=== PATIENT | male | born 1980 | race Caucasian/White ===

== ENCOUNTER 2019-07-16 20:26 | Inpatient (IN) | payer MEDICAID, OTHER ==
[~2019-07-16] VITALS: Ht 170.2 cm; Wt 100.9 kg
[2019-07-16 21:00] LABS: BASOPHILS # (AUTO) 0.1 X10'3 (0-0.2); BASOPHILS % (AUTO) 0.7 % (0-1); EOSINOPHILS # (AUTO) 0.3 X10'3 (0-0.9); HEMATOCRIT 48.1 % (42.0-52.0); HEMOGLOBIN 16.7 g/dl (14.0-17.9); LYMPHOCYTES # (AUTO) 2.1 X10'3 (1.1-4.8); LYMPHOCYTES % (AUTO) 22.9 % (21-51); MEAN CORPUSCULAR HEMOGLOBIN 29.6 PG (27.0-31.0); MEAN CORPUSCULAR HGB CONC 34.8 g/dL (33.0-36.5); MEAN CORPUSCULAR VOLUME 85.2 FL (78-98); MONOCYTES # (AUTO) 0.5 X10'3 (0-0.9); MONOCYTES % (AUTO) 5.5 % (2-12); NEUTROPHILS # (AUTO) 6.2 X10'3 (1.8-7.7); NEUTROPHILS % (AUTO) 67.9 % (42-75); PLATELET COUNT 240 X10'3 (140-440); RED BLOOD COUNT 5.64 X10'6 (4.70-6.10); RED CELL DISTRIBUTION WIDTH 12.9 % (11.5-14.5); WHITE BLOOD COUNT 9.1 X10'3 (4.5-11.0)
[2019-07-16 21:08] LABS: ALANINE AMINOTRANSFERASE 61 U/L (12-78); ALBUMIN 3.5 G/DL (3.4-5.0); ALBUMIN/GLOBULIN RATIO 0.9 (1.1-1.5); ALKALINE PHOSPHATASE 145 IU/L (46-116); ANION GAP 11 (8-16); ASPARTATE AMINO TRANSFERASE 27 U/L (10-37); BILIRUBIN,TOTAL 0.5 MG/DL (0.1-1.0); BLOOD UREA NITROGEN 10 MG/DL (7-18); BUN/CREATININE RATIO 7.9 (5.4-32.0); CHLORIDE 97 MMOL/L (99-107); CREATININE 1.26 MG/DL (0.60-1.10); SODIUM 134 MMOL/L (135-145); TOTAL CARBON DIOXIDE 25.6 MMOL/L (24-32); TOTAL PROTEIN 7.5 G/DL (6.4-8.2); eGFR 64 ML/MIN
[2019-07-16 21:10] LABS: PARTIAL THROMBOPLASTIN TIME 27 SECONDS (22-32)
[2019-07-16 21:11] LABS: POTASSIUM 3.8 MMOL/L (3.5-5.1)
[2019-07-16 21:20] LABS: GLUCOSE 587 MG/DL (70-104)
[2019-07-16] MEDS ORDERED: nitroGLYCERIN 1gm ointment UD TP ONE (21:30)
[2019-07-16] MEDS ORDERED: aspirin 81mg tab.chew PO ONE (21:30)
[2019-07-16] MEDS ORDERED: labetalol 20mg/4ml (5mg/ml) syringe IV ONE ×2 (21:30→23:20)
[2019-07-16] MEDS ORDERED: ondansetron/PF 4mg/2ml inj IV ONE (21:35)
[2019-07-16] MEDS ORDERED: morphine 4 MG/ML inj SYRINge IV ONE (21:35)
[2019-07-16] MEDS ORDERED: heparin 10,000 units/1 ML INJ IV ONE ×2 (21:40)
[2019-07-16] MEDS ORDERED: HYDR25TA4 PO (21:43)
[2019-07-16] MEDS ORDERED: normal saline 1000ML IV soln IVB ONE (21:45)
[2019-07-16] MEDS ORDERED: insulin regular, human 10 units/0.1 ml syringe IV ONE (21:45)
[2019-07-16] MEDS: heparin 25,000 UNIT/250ml bag 250 ML IV SCH (21:59)
[2019-07-16] MEDS ORDERED: dextrose ORAL solution 15 GM/59 ML bottle PO PRN ×2 (23:25)
[2019-07-16] MEDS ORDERED: acetaminophen 325mg tablet PO PRN (23:25)
[2019-07-16] MEDS ORDERED: dextrose 50%-water 50ml dispensing syringe IV PRN ×2 (23:25)
[2019-07-16] MEDS ORDERED: magnesium hydroxide 30ml (MOM) UD suspension PO PRN (23:25)
[2019-07-16] MEDS ORDERED: morphine 2 MG/ML inj. syringe IV PRN ×2 (23:25)
[2019-07-16] MEDS ORDERED: mag hydrox/Alum hydrox/simeth 30ml oral suspension PO PRN (23:25)
[2019-07-16] MEDS ORDERED: ondansetron/PF 4mg/2ml inj IV PRN (23:25)
[2019-07-16] MEDS ORDERED: glucagon, human recombinant 1mg kit SUBCUT PRN (23:25)
[2019-07-16] MEDS ORDERED: MESSAGE TO PHARMACY PO ONE (23:25)
[2019-07-16 23:38] LABS: URINE AMPHETAMINE SCREEN NEGATIVE (Neg); URINE BARBITUATE SCREEN NEGATIVE (Neg); URINE BENZODIAZEPINES SCREEN NEGATIVE (Neg); URINE CANNABINOID SCREEN NEGATIVE (Neg); URINE COCAINE SCREEN NEGATIVE (Neg); URINE METHADONE SCREEN NEGATIVE (Neg); URINE OPIATE SCREEN NEGATIVE (Neg); URINE PHENCYCLIDINE SCREEN NEGATIVE (Neg)
[2019-07-16] MEDS: metoprolol tartrate 50mg tablet PO SCH (23:43)
[2019-07-16] MEDS: normal saline 1000ml 1,000 ML IV SCH (23:43)
[2019-07-17] VITALS (16 sets, daily range): BP systolic 107–188; BP diastolic 64–137
--- NOTE | 2019-07-17 00:59 | NUR ---
ER NURSE CALLED AND REPORTED THAT 3 HR TROP 4.[address] RAMIREZ. NO NEW ORDERS AT THIS TIME. PATIENT DENIES CP. WILL CONTINUE TO MONITOR
--- NOTE | 2019-07-17 03:13 | NUR ---
Called Dr. Reese and informed him regarding the patient's troponin being 8.58. He acknowledged the troponin level. No orders were given at this time.
[2019-07-17] MEDS ORDERED: tirofiban 5mg in NS 100mL 100 ML IV SCH (04:37)
[2019-07-17] MEDS: tirofiban 12.5mg in NS 250mL 250 ML IV SCH ×3 (05:03→17:11)
[2019-07-17 05:36] LABS: BASOPHILS # (AUTO) 0.1 X10'3 (0-0.2); BASOPHILS % (AUTO) 0.7 % (0-1); EOSINOPHILS # (AUTO) 0.3 X10'3 (0-0.9); EOSINOPHILS % (AUTO) 2.7 % (0-6); HEMATOCRIT 45.1 % (42.0-52.0); HEMOGLOBIN 15.7 g/dl (14.0-17.9); LYMPHOCYTES # (AUTO) 2.6 X10'3 (1.1-4.8); LYMPHOCYTES % (AUTO) 25.5 % (21-51); MEAN CORPUSCULAR HEMOGLOBIN 29.6 PG (27.0-31.0); MEAN CORPUSCULAR HGB CONC 34.7 g/dL (33.0-36.5); MEAN CORPUSCULAR VOLUME 85.1 FL (78-98); MONOCYTES # (AUTO) 0.5 X10'3 (0-0.9); MONOCYTES % (AUTO) 4.5 % (2-12); NEUTROPHILS # (AUTO) 6.8 X10'3 (1.8-7.7); NEUTROPHILS % (AUTO) 66.6 % (42-75); PLATELET COUNT 234 X10'3 (140-440); RED CELL DISTRIBUTION WIDTH 13.2 % (11.5-14.5); WHITE BLOOD COUNT 10.1 X10'3 (4.5-11.0)
[2019-07-17 05:48] LABS: ALANINE AMINOTRANSFERASE 57 U/L (12-78); ALBUMIN 3.3 G/DL (3.4-5.0); ALBUMIN/GLOBULIN RATIO 0.9 (1.1-1.5); ALKALINE PHOSPHATASE 119 IU/L (46-116); ANION GAP 11 (8-16); ASPARTATE AMINO TRANSFERASE 74 U/L (10-37); BILIRUBIN,TOTAL 0.4 MG/DL (0.1-1.0); BLOOD UREA NITROGEN 11 MG/DL (7-18); CALCIUM 8.8 MG/DL (8.5-10.1); CHLORIDE 102 MMOL/L (99-107); CHOL/HDL RATIO 6.5 (0.00-4.99); CHOLESTEROL 182 MG/DL (0-200); CREATININE 0.92 MG/DL (0.60-1.10); GLUCOSE 363 MG/DL (70-104); HDL CHOLESTEROL 28 MG/DL (35-60); LDL CHOLESTEROL 93 MG/DL (50-100); SODIUM 140 MMOL/L (135-145); TOTAL CARBON DIOXIDE 26.9 MMOL/L (24-32); TOTAL PROTEIN 6.9 G/DL (6.4-8.2); TRIGLYCERIDES 566 MG/DL (20-135); eGFR > 90 ML/MIN
[2019-07-17 05:50] LABS: POTASSIUM 3.3 MMOL/L (3.5-5.1)
[2019-07-17] MEDS: heparin 25,000 UNIT/250ml bag 250 ML IV SCH ×3 (05:59→21:18)
[2019-07-17] MEDS: heparin 10,000 units/1 ML INJ IV PRN ×3 (06:00→21:14)
[2019-07-17 06:04] LABS: HEMOGLOBIN A1C 10.2 % (4.5-6.2)
--- NOTE | 2019-07-17 06:15 | NUR ---
Patient in room MED 308. I have received report from Aliza REDD and had the opportunity to ask questions and assume patient care.
--- NOTE | 2019-07-17 06:36 | NUR ---
Patient in room MED 308. I have received report from TRAMAINE Abrams and had the opportunity to ask questions and assume patient care.
[2019-07-17] MEDS ORDERED: potassium CL 10mEq/100ml bag 100 ML IV PRN (07:05)
[2019-07-17] MEDS ORDERED: potassium Cl 20 mEq SR tablet PO PRN (07:05)
[2019-07-17] MEDS: potassium Cl 20 mEq SR tablet PO PRN ×3 (07:21→17:57)
[2019-07-17] MEDS: metoprolol tartrate 50mg tablet PO SCH (07:21)
[2019-07-17] MEDS ORDERED: hydrALAZINE 20mg/ml inj. IV PRN ×3 (08:05→13:35)
--- NOTE | 2019-07-17 08:30 | NUR ---
Administered hydralazine 10 mg IVP at this time, will monitor the results of his blood pressure.
[2019-07-17] MEDS: insulin Lispro (HumaLOG) vial - multi-dose SQ SCH ×3 (09:05→15:25)
[2019-07-17] MEDS: normal saline 1000ml 1,000 ML IV SCH ×2 (09:21→15:30)
[2019-07-17 09:27] LABS: MAGNESIUM 1.6 MG/DL (1.5-2.4)
--- NOTE | 2019-07-17 09:40 | NUR ---
HE HOSPITALIST, "REYNALDO [id number] SHAYAN BETANCUR CRIT HIGH TROP 13.38 RECENTLY RESULTED. HIGHER THAN PRIOR RESULT." DR. SANTOS RECENTLY ROUNDED AND DISCUSSED WITH PATIENT THE PLAN FOR RECEIVING AN ANGIOGRAM TODAY.
[2019-07-17] MEDS ORDERED: amLODIPine 5mg tablet PO STA (09:52)
--- NOTE | 2019-07-17 10:00 | NUR ---
Student documentation & medication administration documentation: I have reviewed and agree with all interventions, assessments performed and documented by Arnoldo Goodman RN.
[2019-07-17] MEDS ORDERED: metoprolol tartrate 1mg/ml inj IV ONE ×2 (11:10→12:44)
[2019-07-17] MEDS ORDERED: LORazepam 1 MG tablet PO ONE (11:10)
[2019-07-17] MEDS ORDERED: nitroGLYCERIN-Tridil 50MG/D5W 250 ML IV SCH (11:10)
[2019-07-17] MEDS ORDERED: diphenhydrAMINE 25mg capsule PO ONE (11:10)
[2019-07-17] MEDS ORDERED: phenylephrine 10mg/ml inj. ONE (12:00)
[2019-07-17] MEDS ORDERED: LIDOcaine 2% (20 mg/ml) 5ml cardiac syringe ONE (12:00)
[2019-07-17] MEDS ORDERED: albumin (human) 25% 100 ML IV solution IV ONE (12:00)
[2019-07-17] MEDS ORDERED: potassium Cl 2 mEq/ml inj IV ONE (12:00)
[2019-07-17] MEDS ORDERED: methylPREDNISolone sod. succ. 500mg inj ONE (12:00)
[2019-07-17] MEDS ORDERED: heparin 10,000 units/1 ML INJ ONE (12:00)
[2019-07-17] MEDS ORDERED: MAGNESIUM SULFATE 4 MEQ/ML (5gm/10ml) injection ONE (12:00)
[2019-07-17] MEDS ORDERED: heparin 1,000 units/ml 10ml inj ONE (12:00)
[2019-07-17] MEDS ORDERED: aminocaproic acid 250 MG/1 ML inj. ONE (12:00)
[2019-07-17] MEDS ORDERED: sodium bicarbonate (8.4%) 1 mEq/ml syringe ONE (12:00)
[2019-07-17] MEDS ORDERED: papaverine 30 mg/ml 2ml inj. ONE (12:00)
[2019-07-17] MEDS ORDERED: iohexol 350MG/ML 100ml bottle IV ONE (12:06)
[2019-07-17] MEDS ORDERED: iohexol 350 MG/ML 50ML vial IV ONE (12:06)
[2019-07-17] MEDS ORDERED: LIDOcaine 1% (10mg/ml)w/preservative injection 20ml MDV ONE (12:06)
--- NOTE | 2019-07-17 12:13 | NUR ---
DM Consult: Pt admit w/ NSTEMI hx HTN and T2DM A1C 10.2. GLU 587 and TG 566 on admit; TG possibly r/t uncontrolled GLU vs other dietary habits now receiving lipitor. Per MD note likely non-compliance w/ hydrochlorothiazide home meds. Pt currently NPO for possible angiogram per MD note. Receiving electrolyte replacement per protocol. Will need DM ed once more stable prior to d/c. Will monitor for diet advancement. Rec: 1. advance diet to carb controlled/heart healthy per MD 2. monitor for ONS needs once PO 3. DM ed once more stable prior to d/c 4. wt per rx Addendum: 07/17/19 at [address] Amended: Links added.
--- NOTE | 2019-07-17 12:20 | NUR ---
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
[2019-07-17] MEDS ORDERED: fentaNYL/PF 50MCG/1 ML 2ML syringe ONE (12:30)
[2019-07-17] MEDS ORDERED: midazolam 2 mg/2 ml injection ONE (12:30)
[2019-07-17] MEDS ORDERED: nitroGLYCERIN-Tridil 50MG/D5W 250 ML IV ONE (12:53)
--- NOTE | 2019-07-17 13:00 | NUR ---
Received pt report from TRAMAINE Rutherford from ACCE unit.
--- NOTE | 2019-07-17 13:18 | NUR ---
Received report from TRAMAINE Taylor from Forensic Examiner.
--- NOTE | 2019-07-17 13:30 | NUR ---
Report given to Dominic REDD in ICU.
--- NOTE | 2019-07-17 13:30 | NUR ---
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 He is lightly sedated, hypertensive, normal sinus rhythm. Pt denies discomfort at this time. Femoral sheath site without hematoma.
[2019-07-17] MEDS ORDERED: aspirin 81mg tab.chew PO ONE (13:37)
[2019-07-17] MEDS ORDERED: morphine 4 MG/ML inj SYRINge IV PRN (13:45)
[2019-07-17] MEDS ORDERED: HYDROcodone/acetaminophen 10/325mg tab PO PRN (13:45)
[2019-07-17] MEDS ORDERED: OXAZEpam 15mg capsule PO PRN (13:45)
[2019-07-17] MEDS ORDERED: morphine 10mg/ml inj. IV PRN (13:45)
[2019-07-17] MEDS ORDERED: proCHLORperazine 10 MG/2 ml inj IV PRN (13:45)
[2019-07-17] MEDS ORDERED: MESSAGE TO NURSING PO ONE ×4 (13:55)
[2019-07-17] MEDS ORDERED: dextrose 50%-water 50ml dispensing syringe IV PRN ×3 (13:55→17:15)
[2019-07-17] MEDS ORDERED: gabapentin 400mg capsule PO ONE (13:55)
[2019-07-17] MEDS ORDERED: insulin glargine (Lantus) pen - multi-dose SQ PRN (13:55)
[2019-07-17 14:29] LABS: PARTIAL THROMBOPLASTIN TIME 35 SECONDS (22-32)
[2019-07-17] MEDS ORDERED: dextrose ORAL solution 15 GM/59 ML bottle PO PRN ×2 (17:15)
[2019-07-17] MEDS ORDERED: insulin Lispro (HumaLOG) vial - multi-dose SQ SCH (17:15)
[2019-07-17] MEDS ORDERED: MESSAGE TO PHARMACY PO ONE (17:15)
[2019-07-17] MEDS ORDERED: glucagon, human recombinant 1mg kit SUBCUT PRN (17:15)
[2019-07-17 17:26] LABS: ABG BASE EXCESS 2.2 mmol/L (-2.0-3.0); ABG HCO3 26.3 mmol/L (22.0-26.0); ABG OXYGEN SATURATION 97.6 % (95-98); ABG PCO2 (T) 39.3 mmHg (35.0-45.0); ABG PH (T) 7.444 (7.350-7.450); ABG PO2 (T) 94.8 mmHg (83-108); ALLEN'S TEST Positive; FCOHb 0.8 % (0.5-1.5); FLOW 2 L/min; FMetHb 0.2 % (0.3-1.12); FO2Hb 96.6 % (94-100); RESPIRATORY RATE (OBSERVED) 16 b/min; TOTAL HEMOGLOBIN 16.1 G/dl (14.0-17.9)
--- NOTE | 2019-07-17 18:20 | NUR ---
Patient in room ICU 2044. I have received report from TRAMAINE Alfaro and had the opportunity to ask questions and assume patient care. Patient supine in bed. Patient sleeping but awakens to verbal easily. Patient with right arterial sheath in place. Dressing intact, skin is soft without hematoma. Pedal pulses intact bilaterally. Patient currently on Heparin drip, Aggrastat drip, Tridil drip, and normal saline infusing per MD order in bilateral PIV's to upper extremities Oxygen via nasal cannula at [address] Patient denies any chest pain at this time. Patient C/O lower back pain from lying flat and not being able to move right lower extremity.
--- NOTE | 2019-07-17 18:25 | NUR ---
Problems reprioritized. Patient report given, questions answered & plan of care reviewed with TRAMAINE Khan.
--- NOTE | 2019-07-17 19:00 | NUR ---
Patients Right groin dressing to the sheath is saturated with blood. Patient on heparin drip. no hematoma present. Dressing changed.
[2019-07-17] MEDS ORDERED: metoprolol tartrate 12.5mg (1/2 tablet) PO SCH (20:00)
[2019-07-17] MEDS ORDERED: metoprolol succinate 25mg (24-HOUR) SR. Tablet PO SCH (20:00)
[2019-07-17] MEDS ORDERED: amLODIPine 5mg tablet PO SCH (20:00)
--- NOTE | 2019-07-17 20:30 | NUR ---
supervisor advice called to confirm that patient is not on the surgery schedule for tomorrow. Wednesday 07/18. supervisor advice confirmed that he is not on the schedule and is possibly for Thursday or Thursday.
[2019-07-17] MEDS ORDERED: insulin glargine (Lantus) pen - multi-dose SQ SCH (21:00)
[2019-07-17] MEDS: docusate sod 100mg capsule PO SCH (21:03)
[2019-07-17] MEDS: carVEDilol 12.5mg tablet PO SCH (21:03)
[2019-07-17] MEDS: cyclobenzaprine 10mg tablet PO PRN (21:03)
[2019-07-17] MEDS: amLODIPine 5mg tablet PO SCH (21:04)
[2019-07-17] MEDS: insulin glargine (Lantus) pen - multi-dose SQ SCH (21:37)
--- NOTE | 2019-07-17 22:00 | NUR ---
Right arterial sheath dressing changed secondary to saturation with blood. Site is without hematoma, soft. Pedal pulses intact.
[2019-07-17 22:04] LABS: CLARITY,URINE CLEAR (Clear); COLOR,URINE YELLOW (Yellow); GLUCOSE, URINE >=1000 mg/dl (Neg); KETONES,URINE 40 mg/dl (Neg); LEUKOCYTE ESTERASE ,URINE NEGATIVE (Neg); NITRITES, URINE NEGATIVE (Neg); OCCULT BLOOD,URINE NEGATIVE (Neg); PH,URINE 7.5 (4.8-8.0); PROTEIN,URINE 100 mg/dl (Neg); UROBILINOGEN,URINE 0.2 E.U/dL (0.2-1.0)
[2019-07-17 22:14] LABS: UA COLLECTION TYPE CLN CATCH MIDSTREAM
[2019-07-17 22:26] LABS: BACTERIA,URINE NONE SEEN /HPF (Neg); MUCUS STRANDS MANY /LPF (Neg); RBC,URINE 0-2 /HPF (0-2); SQUAMOUS EPITHELIAL CELL,UR FEW /LPF (FEW); WBC,URINE 0-4 /HPF (0-4)
--- NOTE | 2019-07-17 22:55 | NUR ---
Phone call to Britton Wilde NP re: Patient with Obstructive sleep apnea. Patient does not wear CPAP at home although he says he has had a sleep study and "should wear one but I don't like it." Patient's oxygen saturation on 3 lpm nasal cannula while sleeping dropping to the high 70's - low 80's with frequent periods of apnea. Order for CPAP PRN for SOB/ low oxygen saturation.
[2019-07-18] VITALS (25 sets, daily range): BP systolic 92–147; BP diastolic 41–98
[2019-07-18] MEDS: HYDROcodone/acetaminophen 10/325mg tab PO PRN ×2 (00:54→17:17)
--- NOTE | 2019-07-18 01:40 | NUR ---
0051: Patient awoke from sleep, pulled off CPAP mask. Patient states " I am not wearing this anymore." Educated patient on the purpose of wearing the mask and his oxygenation levels while asleep. Patient states " I don't care, I do not want to wear it. Is there something I can sign that I do not want to wear it?" Patient placed on 3 lpm nasal cannula. During sleep patient with periods of apnea. Each time staff went in and woke patient up and asked him to breathe. At 0136 Patient agreed to try the mask again. Will continue to monitor.
--- NOTE | 2019-07-18 03:36 | NUR ---
Arterial sheath not able to draw blood. Lab called to place patient on morning lab draw list. Asked them to come up and draw DANIELLE .
[2019-07-18 05:21] LABS: ALANINE AMINOTRANSFERASE 53 U/L (12-78); ALBUMIN/GLOBULIN RATIO 0.9 (1.1-1.5); ALKALINE PHOSPHATASE 99 IU/L (46-116); ANION GAP 8 (8-16); ASPARTATE AMINO TRANSFERASE 43 U/L (10-37); BILIRUBIN,TOTAL 0.8 MG/DL (0.1-1.0); BLOOD UREA NITROGEN 14 MG/DL (7-18); BUN/CREATININE RATIO 11.9 (5.4-32.0); CALCIUM 8.3 MG/DL (8.5-10.1); CHLORIDE 105 MMOL/L (99-107); CREATININE 1.18 MG/DL (0.60-1.10); GLUCOSE 267 MG/DL (70-104); POTASSIUM 4.1 MMOL/L (3.5-5.1); SODIUM 139 MMOL/L (135-145); TOTAL CARBON DIOXIDE 26.4 MMOL/L (24-32); TOTAL PROTEIN 6.5 G/DL (6.4-8.2); eGFR 69 ML/MIN
[2019-07-18 05:24] LABS: BASOPHILS % (AUTO) 0.4 % (0-1); EOSINOPHILS # (AUTO) 0.2 X10'3 (0-0.9); EOSINOPHILS % (AUTO) 1.7 % (0-6); HEMATOCRIT 43.4 % (42.0-52.0); HEMOGLOBIN 14.4 g/dl (14.0-17.9); LYMPHOCYTES # (AUTO) 1.9 X10'3 (1.1-4.8); LYMPHOCYTES % (AUTO) 15.2 % (21-51); MEAN CORPUSCULAR HEMOGLOBIN 28.8 PG (27.0-31.0); MEAN CORPUSCULAR HGB CONC 33.3 g/dL (33.0-36.5); MEAN CORPUSCULAR VOLUME 86.6 FL (78-98); MEAN PLATELET VOLUME 10.6 FL (7.4-10.4); MONOCYTES # (AUTO) 0.8 X10'3 (0-0.9); MONOCYTES % (AUTO) 6.2 % (2-12); NEUTROPHILS # (AUTO) 9.7 X10'3 (1.8-7.7); NEUTROPHILS % (AUTO) 76.5 % (42-75); PLATELET COUNT 287 X10'3 (140-440); RED BLOOD COUNT 5.01 X10'6 (4.70-6.10); RED CELL DISTRIBUTION WIDTH 13.2 % (11.5-14.5); WHITE BLOOD COUNT 12.7 X10'3 (4.5-11.0)
[2019-07-18] MEDS: normal saline 1000ml 1,000 ML IV SCH (05:40)
--- NOTE | 2019-07-18 06:21 | NUR ---
Problems reprioritized. Patient report given, questions answered & plan of care reviewed with TRAMAINE Alfaro.
--- NOTE | 2019-07-18 06:30 | NUR ---
Patient in room ICU 2044. I have received report from TRAMAINE Khan and had the opportunity to ask questions and assume patient care.
[2019-07-18 06:38] LABS: MAGNESIUM 1.7 MG/DL (1.5-2.4)
[2019-07-18 07:27] LABS: LARGE PLATELETS FEW; PLATELET ESTIMATE NORMAL
[2019-07-18] MEDS: carVEDilol 12.5mg tablet PO SCH ×2 (07:42→21:17)
[2019-07-18] MEDS: docusate sod 100mg capsule PO SCH ×2 (07:42→21:17)
[2019-07-18] MEDS: cyclobenzaprine 10mg tablet PO PRN (07:42)
[2019-07-18] MEDS: tirofiban 12.5mg in NS 250mL 250 ML IV SCH (07:43)
[2019-07-18] MEDS: mupirocin 2% nasal ointment 1gm UD NS SCH ×2 (07:45→21:19)
[2019-07-18] MEDS ORDERED: atorvastatin 20mg tablet PO SCH (08:00)
[2019-07-18] MEDS ORDERED: lisinopril 10 MG tablet PO SCH (08:00)
[2019-07-18] MEDS ORDERED: lisinopril 20mg tablet PO SCH (08:00)
[2019-07-18] MEDS ORDERED: aspirin 81mg tablet.DR PO SCH (08:00)
[2019-07-18] MEDS: heparin 25,000 UNIT/250ml bag 250 ML IV SCH (08:56)
[2019-07-18] MEDS: amLODIPine 5mg tablet PO SCH ×2 (08:58→21:17)
[2019-07-18] MEDS: insulin Lispro (HumaLOG) vial - multi-dose SQ SCH ×2 (09:04→21:56)
[2019-07-18] MEDS ORDERED: ringers solution, lacted 1,000 ML IV ONE (09:31)
[2019-07-18] MEDS ORDERED: MESSAGE TO NURSING PO ONE (10:00)
--- NOTE | 2019-07-18 14:34 | NUR ---
Pt requests that femoral sheath be discontinued. Femoral sheath is flushing smoothly, unable to draw blood form sheath despite position. Pt remains on heparin gtt with therapeutic PTT 46. There has been a constant oozing of blood from sheath insertion site requiring multiple dressing changes a shift. This was discussed with Dr. Greer. Order received to hold heparin gtt for two hours, discontinue femoral sheath, place Femstop device for 6 hrs, and resume heparin gtt once sheath has been pulled.
--- NOTE | 2019-07-18 17:38 | NUR ---
Femoral sheath discontinued. Pt experienced some discomfort upon sheath withdrawal. Manual pressure held for 20 minutes. Femstop device placed. Distal circulation intact. Heparin drip restarted. PTT ordered and retimed.
--- NOTE | 2019-07-18 18:18 | NUR ---
Verbal order from Dr. Greer to stop the Heparin drip. Patient states he a Jehovahs Witness and is not wanting to accept blood. Dr. Greer came to bedside discussed what blood products the patient was okay with accepting. J.WClare Blood product consent signed.
--- NOTE | 2019-07-18 18:30 | NUR ---
Problems reprioritized. Patient report given, questions answered & plan of care reviewed with [TRAMAINE Khan].
[2019-07-18] MEDS: insulin glargine (Lantus) pen - multi-dose SQ SCH (21:00)
--- NOTE | 2019-07-18 21:13 | NUR ---
Called Dr. Greer to confirm that he wanted the Aggrastat turned off per the standing order in the eMAR. Dr. Greer confirmed to turn off the Aggrastat now. Late entry: 1819 Dr. Greer gave order to D/C Heparin. Told to continue Aggrastat.
--- NOTE | 2019-07-18 21:30 | NUR ---
Problems reprioritized. Patient report given, questions answered & plan of care reviewed with TRAMAINE Duarte.
--- NOTE | 2019-07-18 21:30 | NUR ---
Patient in room ICU 2044. I have received report from Erin tyson and had the opportunity to ask questions and assume patient care.
--- NOTE | 2019-07-18 23:00 | NUR ---
femstop removed. site is soft, dressing clean and dry. no hematoma noted. pedal pulses 3+ bilaterally with good cap refill. pt educated on s/s of bleeding and post cath care. pt verbalized understanding of education
[2019-07-19] VITALS (24 sets, daily range): BP systolic 109–166; BP diastolic 64–91
--- NOTE | 2019-07-19 00:08 | NUR ---
pt prepared for CABG scheduled for tomorrow. pt shaved, wiped down with medicated wiped, and linens changed. education provided on sternal precautions, incentive spirometer, and flutter valve. pt able to perform return demonstration on flutter valve and incentive spirometer/ pt verbalized understanding of education.
[2019-07-19] MEDS: tirofiban 12.5mg in NS 250mL 250 ML IV SCH (00:12)
[2019-07-19 02:35] LABS: BASOPHILS % (AUTO) 0.3 % (0-1); EOSINOPHILS # (AUTO) 0.4 X10'3 (0-0.9); EOSINOPHILS % (AUTO) 3.6 % (0-6); HEMATOCRIT 38.8 % (42.0-52.0); HEMOGLOBIN 13.3 g/dl (14.0-17.9); LYMPHOCYTES # (AUTO) 1.9 X10'3 (1.1-4.8); LYMPHOCYTES % (AUTO) 19.7 % (21-51); MEAN CORPUSCULAR HEMOGLOBIN 29.6 PG (27.0-31.0); MEAN CORPUSCULAR HGB CONC 34.2 g/dL (33.0-36.5); MEAN CORPUSCULAR VOLUME 86.3 FL (78-98); MEAN PLATELET VOLUME 9.3 FL (7.4-10.4); MONOCYTES # (AUTO) 0.7 X10'3 (0-0.9); MONOCYTES % (AUTO) 6.7 % (2-12); NEUTROPHILS # (AUTO) 6.8 X10'3 (1.8-7.7); NEUTROPHILS % (AUTO) 69.7 % (42-75); PLATELET COUNT 222 X10'3 (140-440); RED CELL DISTRIBUTION WIDTH 13.2 % (11.5-14.5); WHITE BLOOD COUNT 9.7 X10'3 (4.5-11.0)
[2019-07-19 02:46] LABS: ALANINE AMINOTRANSFERASE 39 U/L (12-78); ALBUMIN 2.6 G/DL (3.4-5.0); ALBUMIN/GLOBULIN RATIO 0.7 (1.1-1.5); ALKALINE PHOSPHATASE 95 IU/L (46-116); ANION GAP 3 (8-16); ASPARTATE AMINO TRANSFERASE 22 U/L (10-37); BILIRUBIN,TOTAL 0.7 MG/DL (0.1-1.0); BLOOD UREA NITROGEN 18 MG/DL (7-18); CALCIUM 8.2 MG/DL (8.5-10.1); CHLORIDE 108 MMOL/L (99-107); GLUCOSE 204 MG/DL (70-104); POTASSIUM 3.7 MMOL/L (3.5-5.1); SODIUM 141 MMOL/L (135-145); TOTAL CARBON DIOXIDE 29.9 MMOL/L (24-32); TOTAL PROTEIN 6.1 G/DL (6.4-8.2); eGFR > 90 ML/MIN
[2019-07-19] MEDS ORDERED: gabapentin 400mg capsule PO ONE (03:40)
--- NOTE | 2019-07-19 03:56 | NUR ---
completed second round of CHG wipes from chin to toes
[2019-07-19] MEDS ORDERED: ROPIVAcaine 0.5% (5mg/ml) 30ml vial ONE ×2 (04:39→09:10)
[2019-07-19] MEDS ORDERED: cefazolin/dext.iso 2gm/50ml 50 ML IV ONE (05:30)
[2019-07-19] MEDS ORDERED: insulin glargine (Lantus) pen - multi-dose SQ PRN (05:30)
[2019-07-19] MEDS ORDERED: NUT.TX.IMPAIRED DIGEST FXN (Ensure Clear) 237 ML PO ONE (05:30)
[2019-07-19] MEDS ORDERED: vancomycin/NS 1 GM ADD-VANTAGE 250 ML IV ONE (05:30)
[2019-07-19] MEDS ORDERED: famotidine 20mg tablet PO ONE (06:00)
[2019-07-19] MEDS ORDERED: LORazepam 2 mg/ml vial IV ONE (06:00)
[2019-07-19] MEDS ORDERED: SUFENTANIL CITRATE 50 MCG/ML 2ml ampule IV ONE (06:22)
[2019-07-19] MEDS ORDERED: MIDAZolam 1mg/ml 10ml vial ONE (06:22)
[2019-07-19] MEDS ORDERED: propofol inj 20 ML IV ONE (06:27)
[2019-07-19 07:15] LABS: ABG BASE EXCESS -0.6 mmol/L (-2.0-3.0); ABG HCO3 23.7 mmol/L (22.0-26.0); ABG OXYGEN SATURATION 96.8 % (95-98); ABG PCO2 38.2 mmHg (35.0-45.0); ABG PO2 89.7 mmHg (60.0-100.0); CL (ABG) 102 mmol/L (99-107); FCOHb 1.6 % (0.5-1.5); FMetHb 0.3 % (0.3-1.12); GLUCOSE (ABG) 233 mg/dl (70-104); IONIZED CA (ABG) 1.18 mmol/L (1.03-1.32); K (ABG) 3.7 mmol/L (3.3-5.1); NA (ABG) 137 mmol/L (135-145); TOTAL HEMOGLOBIN 16.2 G/dl (14.0-17.9)
[2019-07-19] MEDS ORDERED: ceFAZolin 1000mg inj ONE (07:24)
[2019-07-19 07:55] LABS: ABG BASE EXCESS VENOUS -1.7 mmol/L; ABG HCO3 VENOUS 23.7 mmol/L; ABG PCO2 VENOUS 43.2 mmHg; ABG PO2 VENOUS 36.5 mmHg; CL (ABG) 104 mmol/L (99-107); FCOHb VENOUS 1.7 %; FHHb VENOUS 29.2 %; FO2Hb VENOUS 69.1 %; GLUCOSE (ABG) 237 mg/dl (70-104); IONIZED CA (ABG) 1.07 mmol/L (1.03-1.32); K (ABG) 3.6 mmol/L (3.3-5.1); NA (ABG) 133 mmol/L (135-145); TOTAL HEMOGLOBIN 11.9 G/dl (14.0-17.9)
[2019-07-19 08:21] LABS: ABG BASE EXCESS -0.4 mmol/L (-2.0-3.0); ABG HCO3 24.7 mmol/L (22.0-26.0); ABG OXYGEN SATURATION 99.3 % (95-98); ABG PCO2 42.7 mmHg (35.0-45.0); ABG PO2 283.4 mmHg (60.0-100.0); CL (ABG) 102 mmol/L (99-107); FCOHb 1.1 % (0.5-1.5); FMetHb 0.3 % (0.3-1.12); FO2Hb 97.9 % (94-100); GLUCOSE (ABG) 213 mg/dl (70-104); IONIZED CA (ABG) 0.99 mmol/L (1.03-1.32); K (ABG) 4.3 mmol/L (3.3-5.1); NA (ABG) 138 mmol/L (135-145); TOTAL HEMOGLOBIN 8.5 G/dl (14.0-17.9)
[2019-07-19 08:40] LABS: ABG OXYGEN SATURATION 99.2 % (95-98); ABG PCO2 41.2 mmHg (35.0-45.0); ABG PH 7.383 (7.350-7.450); ABG PO2 256.7 mmHg (60.0-100.0); CL (ABG) 103 mmol/L (99-107); FCOHb 0.9 % (0.5-1.5); FMetHb 0.3 % (0.3-1.12); GLUCOSE (ABG) 211 mg/dl (70-104); IONIZED CA (ABG) 1.04 mmol/L (1.03-1.32); K (ABG) 4.3 mmol/L (3.3-5.1); NA (ABG) 135 mmol/L (135-145); TOTAL HEMOGLOBIN 8.8 G/dl (14.0-17.9)
[2019-07-19 08:56] LABS: ABG BASE EXCESS VENOUS -0.1 mmol/L; ABG HCO3 VENOUS 25.9 mmol/L; ABG PCO2 VENOUS 48.8 mmHg; ABG PO2 VENOUS 46.3 mmHg; CL (ABG) 103 mmol/L (99-107); FCOHb VENOUS 1.6 %; FHHb VENOUS 19.8 %; FMetHb VENOUS 0.2 %; FO2Hb VENOUS 78.4 %; GLUCOSE (ABG) 222 mg/dl (70-104); IONIZED CA (ABG) 1.06 mmol/L (1.03-1.32); K (ABG) 4.4 mmol/L (3.3-5.1); NA (ABG) 135 mmol/L (135-145); TOTAL HEMOGLOBIN 9.2 G/dl (14.0-17.9)
[2019-07-19 09:05] LABS: ABG HCO3 23.4 mmol/L (22.0-26.0); ABG OXYGEN SATURATION 99.2 % (95-98); ABG PCO2 42.9 mmHg (35.0-45.0); ABG PH 7.355 (7.350-7.450); ABG PO2 204.8 mmHg (60.0-100.0); CL (ABG) 103 mmol/L (99-107); FCOHb 1.1 % (0.5-1.5); FMetHb 0.1 % (0.3-1.12); GLUCOSE (ABG) 212 mg/dl (70-104); IONIZED CA (ABG) 1.08 mmol/L (1.03-1.32); K (ABG) 4.8 mmol/L (3.3-5.1); NA (ABG) 134 mmol/L (135-145); TOTAL HEMOGLOBIN 9.1 G/dl (14.0-17.9)
[2019-07-19] MEDS ORDERED: rocuronium 10mg/ml inj IV ONE ×3 (09:20)
[2019-07-19 09:51] LABS: ABG BASE EXCESS VENOUS -0.5 mmol/L; ABG PCO2 VENOUS 44.7 mmHg; ABG PO2 VENOUS 38.6 mmHg; CL (ABG) 102 mmol/L (99-107); FCOHb VENOUS 1.4 %; FHHb VENOUS 25.6 %; FMetHb VENOUS 0.4 %; FO2Hb VENOUS 72.6 %; GLUCOSE (ABG) 204 mg/dl (70-104); IONIZED CA (ABG) 1.28 mmol/L (1.03-1.32); K (ABG) 4.4 mmol/L (3.3-5.1); NA (ABG) 136 mmol/L (135-145); TOTAL HEMOGLOBIN 11.1 G/dl (14.0-17.9)
[2019-07-19] MEDS ORDERED: nitroGLYCERIN-Tridil 50MG/D5W 250 ML IV PRN (10:32)
[2019-07-19] MEDS ORDERED: niCARDipine-NS 40mg/200ml IVPB 200 ML IV PRN (10:32)
[2019-07-19] MEDS ORDERED: DOPamine 400mg/D5W 250ml 250 ML IV PRN (10:32)
[2019-07-19] MEDS ORDERED: sodium chloride 0.45% 1,000 ML IV SCH (10:32)
[2019-07-19] MEDS ORDERED: magnesium 4gm in 100ml NS 100 ML IV PRN (10:35)
[2019-07-19] MEDS ORDERED: Neutra Phos packet PO PRN (10:35)
[2019-07-19] MEDS ORDERED: sodium phosphate inj. 15 MMOL in dextrose 5%-water 150 ML IV PRN (10:35)
[2019-07-19] MEDS ORDERED: dextrose 50%-water 50ml dispensing syringe IV PRN (10:35)
[2019-07-19] MEDS ORDERED: magnesium 2GM in 50ml NS 50 ML IV PRN (10:35)
[2019-07-19] MEDS ORDERED: sodium phosphate inj. 30 MMOL in dextrose 5%-water 250 ML IV PRN (10:35)
[2019-07-19] MEDS ORDERED: morphine 4 MG/ML inj SYRINge IV PRN ×2 (10:35)
[2019-07-19] MEDS ORDERED: normal saline 250ml IV soln 250 ML IV PRN (10:35)
[2019-07-19] MEDS ORDERED: insulin regular, human inj. 100 UNITS in normal saline 100ml IV soln 100 ML IV SCH ×2 (10:35)
[2019-07-19] MEDS ORDERED: ondansetron/PF 4mg/2ml inj IV PRN (10:35)
[2019-07-19] MEDS ORDERED: metoclopramide 5 mg/ml inj IV PRN (10:35)
[2019-07-19] MEDS ORDERED: potassium Cl 20 mEq SR tablet PO PRN (10:35)
[2019-07-19] MEDS ORDERED: magnesium hydroxide 30ml (MOM) UD suspension PO PRN (10:35)
[2019-07-19] MEDS ORDERED: acetaminophen 325mg tablet PO PRN (10:35)
[2019-07-19] MEDS ORDERED: pantoprazole 40 MG vial IV ONE (10:35)
--- NOTE | 2019-07-19 10:40 | NUR ---
Received to room 2044, accompanied by MDs and surgical crew. Placed on ventilator, to swatcher, arterial line and PA line pressure monitored. Chest tubes to suction at 20 cm. Becker cath to gravity drainage. Dressings are dry and intact. See assessment record. All vasoactive drugs are infusing via central line.
[2019-07-19 11:01] LABS: ABG BASE EXCESS 0.7 mmol/L (-2.0-3.0); ABG HCO3 25.9 mmol/L (22.0-26.0); ABG PCO2 (T) 44.1 mmHg (35.0-45.0); ABG PH (T) 7.387 (7.350-7.450); ABG PO2 (T) 68.9 mmHg (83-108); FCOHb 0.3 % (0.5-1.5); FMetHb 0.1 % (0.3-1.12); FO2Hb 92.6 % (94-100); PEEP 8 cm H2O; RESPIRATORY RATE 12 b/min; RESPIRATORY RATE (OBSERVED) 12 b/min; TIDAL VOLUME 650 mL
[2019-07-19 11:12] LABS: BASOPHILS % (AUTO) 0.1 % (0-1); EOSINOPHILS # (AUTO) 0.1 X10'3 (0-0.9); EOSINOPHILS % (AUTO) 0.6 % (0-6); HEMATOCRIT 32.6 % (42.0-52.0); HEMOGLOBIN 11.1 g/dl (14.0-17.9); LYMPHOCYTES # (AUTO) 0.9 X10'3 (1.1-4.8); LYMPHOCYTES % (AUTO) 5.2 % (21-51); MEAN CORPUSCULAR HEMOGLOBIN 29.1 PG (27.0-31.0); MEAN CORPUSCULAR HGB CONC 33.9 g/dL (33.0-36.5); MEAN CORPUSCULAR VOLUME 85.9 FL (78-98); MEAN PLATELET VOLUME 9.2 FL (7.4-10.4); MONOCYTES # (AUTO) 0.5 X10'3 (0-0.9); MONOCYTES % (AUTO) 3.3 % (2-12); NEUTROPHILS # (AUTO) 14.9 X10'3 (1.8-7.7); NEUTROPHILS % (AUTO) 90.8 % (42-75); PLATELET COUNT 197 X10'3 (140-440); RED CELL DISTRIBUTION WIDTH 13.1 % (11.5-14.5); WHITE BLOOD COUNT 16.4 X10'3 (4.5-11.0)
[2019-07-19] MEDS: insulin regular, human 100 UNIT in normal saline 100ml IV soln 100 ML IV SCH ×2 (11:15)
[2019-07-19 11:22] LABS: PARTIAL THROMBOPLASTIN TIME 30 SECONDS (22-32)
[2019-07-19 11:24] LABS: ALANINE AMINOTRANSFERASE 44 U/L (12-78); ALBUMIN 2.6 G/DL (3.4-5.0); ALKALINE PHOSPHATASE 79 IU/L (46-116); ANION GAP 9 (8-16); ASPARTATE AMINO TRANSFERASE 68 U/L (10-37); BILIRUBIN,TOTAL 1.3 MG/DL (0.1-1.0); BLOOD UREA NITROGEN 17 MG/DL (7-18); BUN/CREATININE RATIO 16.7 (5.4-32.0); CALCIUM 7.9 MG/DL (8.5-10.1); CHLORIDE 109 MMOL/L (99-107); CREATININE 1.02 MG/DL (0.60-1.10); GLUCOSE 203 MG/DL (70-104); MAGNESIUM 2.6 MG/DL (1.5-2.4); PHOSPHORUS 1.5 MG/DL (2.3-4.5); SODIUM 143 MMOL/L (135-145); TOTAL CARBON DIOXIDE 24.7 MMOL/L (24-32); TOTAL PROTEIN 5.1 G/DL (6.4-8.2); eGFR 82 ML/MIN
--- NOTE | 2019-07-19 11:49 | NUR ---
Follow up: patient is s/p CABG, will need written post cardiac surgery diet education handout with verbal review along with written DM education handout with verbal review and referral to outpatient DM education class on Thursday when able. Addendum: 07/19/19 at [address] Amended: Links added.
[2019-07-19] MEDS: potassium Cl 20mEq/100mL bag 100 ML IV PRN ×6 (12:09→22:18)
[2019-07-19] MEDS: albumin (Human) 5% 250ml 250 ML IV PRN ×3 (12:11→15:07)
[2019-07-19] MEDS: insulin Lispro (HumaLOG) vial - multi-dose SQ SCH ×2 (13:00→18:00)
[2019-07-19] MEDS: gabapentin 300mg capsule PO SCH ×2 (14:36→20:36)
[2019-07-19 15:51] LABS: ACT @ 1.70 U 272 SEC (193-297); ACT @ 2.84 U 383 SEC (260-420); BASELINE ACT 156 SEC (101-148); PATIENT WEIGHT 96.0k KG
[2019-07-19 15:51] LABS: ACTIVATED CLOTTING TIME 108 SEC (101-148)
[2019-07-19] MEDS: ceFAZolin 1GM/D5W- ADD-VANTAGE 50 ML IV SCH (16:06)
[2019-07-19 16:35] LABS: ABG BASE EXCESS -0.4 mmol/L (-2.0-3.0); ABG HCO3 23.9 mmol/L (22.0-26.0); ABG OXYGEN SATURATION 92.9 % (95-98); ABG PCO2 (T) 38.2 mmHg (35.0-45.0); ABG PH (T) 7.415 (7.350-7.450); ABG PO2 (T) 65.5 mmHg (83-108); FCOHb 0.3 % (0.5-1.5); FMetHb 0.1 % (0.3-1.12); FO2Hb 92.5 % (94-100); MINUTE VOLUME 10 L/min; PEEP 5 cm H2O; RESPIRATORY RATE (OBSERVED) 22 b/min; TOTAL HEMOGLOBIN 11.3 G/dl (14.0-17.9)
[2019-07-19 18:01] LABS: BASOPHILS % (AUTO) 0 % (0-1); EOSINOPHILS % (AUTO) 0 % (0-6); HEMATOCRIT 31.2 % (42.0-52.0); HEMOGLOBIN 10.6 g/dl (14.0-17.9); LYMPHOCYTES # (AUTO) 0.5 X10'3 (1.1-4.8); MEAN CORPUSCULAR HEMOGLOBIN 29.4 PG (27.0-31.0); MEAN CORPUSCULAR HGB CONC 33.9 g/dL (33.0-36.5); MEAN CORPUSCULAR VOLUME 86.7 FL (78-98); MEAN PLATELET VOLUME 9.6 FL (7.4-10.4); MONOCYTES # (AUTO) 0.3 X10'3 (0-0.9); MONOCYTES % (AUTO) 2.1 % (2-12); NEUTROPHILS # (AUTO) 12.1 X10'3 (1.8-7.7); NEUTROPHILS % (AUTO) 93.9 % (42-75); PLATELET COUNT 176 X10'3 (140-440); RED CELL DISTRIBUTION WIDTH 13.1 % (11.5-14.5); WHITE BLOOD COUNT 12.9 X10'3 (4.5-11.0)
[2019-07-19 18:11] LABS: ALBUMIN 3.5 G/DL (3.4-5.0); ANION GAP 10 (8-16); BLOOD UREA NITROGEN 13 MG/DL (7-18); BUN/CREATININE RATIO 18.1 (5.4-32.0); CALCIUM 8.2 MG/DL (8.5-10.1); CHLORIDE 110 MMOL/L (99-107); CREATININE 0.72 MG/DL (0.60-1.10); GLUCOSE 137 MG/DL (70-104); MAGNESIUM 2.1 MG/DL (1.5-2.4); PHOSPHORUS 2.8 MG/DL (2.3-4.5); POTASSIUM 3.6 MMOL/L (3.5-5.1); SODIUM 144 MMOL/L (135-145); TOTAL CARBON DIOXIDE 23.9 MMOL/L (24-32); eGFR > 90 ML/MIN
--- NOTE | 2019-07-19 18:21 | NUR ---
Pt was becoming apneic in sleep and having difficulty maintaining SpO2 >93%, SpO2 down to 85%. Placed pt on BiPAP 22/5, FIO2 50%. SpO2 up to 94%. Pt became hypertensive with SBP in 170s. Tridil gtt started. BP responded. Pt reported feeling "a little short of breath." New adventitous lung sounds auscultated over RUL. Stat CXR ordered. Discussed with PONCHO Arguello.
--- NOTE | 2019-07-19 18:30 | NUR ---
Patient in room ICU 2044. I have received report from Dominic REDD and had the opportunity to ask questions and assume patient care. Chest X ray done, Pt wearing Bipap at 50% FiO2 and tolerating it well. BS diminished at bases. Loud Pericardial rub.
--- NOTE | 2019-07-19 18:37 | NUR ---
Problems reprioritized. Patient report given, questions answered & plan of care reviewed with TRAMAINE Camacho.
[2019-07-19] MEDS: vancomycin/NS 1 GM ADD-VANTAGE 250 ML IV SCH (20:26)
[2019-07-19] MEDS: mupirocin 2% nasal ointment 1gm UD NS SCH (20:35)
[2019-07-19] MEDS: docusate sod 100mg capsule PO SCH (20:35)
[2019-07-19] MEDS: HYDROcodone/acetaminophen 10/325mg tab PO PRN (20:36)
[2019-07-20] VITALS (24 sets, daily range): BP systolic 100–148; BP diastolic 56–98
[2019-07-20] MEDS: ceFAZolin 1GM/D5W- ADD-VANTAGE 50 ML IV SCH ×4 (00:36→23:43)
[2019-07-20] MEDS: HYDROcodone/acetaminophen 10/325mg tab PO PRN ×4 (00:37→17:32)
[2019-07-20 03:22] LABS: BASOPHILS % (AUTO) 0 % (0-1); EOSINOPHILS % (AUTO) 0 % (0-6); HEMATOCRIT 28.2 % (42.0-52.0); HEMOGLOBIN 9.6 g/dl (14.0-17.9); LYMPHOCYTES # (AUTO) 0.6 X10'3 (1.1-4.8); LYMPHOCYTES % (AUTO) 3.9 % (21-51); MEAN CORPUSCULAR HEMOGLOBIN 29.7 PG (27.0-31.0); MEAN CORPUSCULAR HGB CONC 33.9 g/dL (33.0-36.5); MEAN CORPUSCULAR VOLUME 87.7 FL (78-98); MEAN PLATELET VOLUME 10.2 FL (7.4-10.4); MONOCYTES # (AUTO) 0.7 X10'3 (0-0.9); MONOCYTES % (AUTO) 4.3 % (2-12); NEUTROPHILS # (AUTO) 15.2 X10'3 (1.8-7.7); NEUTROPHILS % (AUTO) 91.8 % (42-75); PLATELET COUNT 175 X10'3 (140-440); RED BLOOD COUNT 3.22 X10'6 (4.70-6.10); RED CELL DISTRIBUTION WIDTH 13.3 % (11.5-14.5); WHITE BLOOD COUNT 16.5 X10'3 (4.5-11.0)
[2019-07-20 03:39] LABS: ALANINE AMINOTRANSFERASE 48 U/L (12-78); ALBUMIN 3.2 G/DL (3.4-5.0); ALBUMIN/GLOBULIN RATIO 1.2 (1.1-1.5); ALKALINE PHOSPHATASE 75 IU/L (46-116); ANION GAP 6 (8-16); ASPARTATE AMINO TRANSFERASE 64 U/L (10-37); BILIRUBIN,TOTAL 0.6 MG/DL (0.1-1.0); BLOOD UREA NITROGEN 14 MG/DL (7-18); BUN/CREATININE RATIO 15.6 (5.4-32.0); CHLORIDE 110 MMOL/L (99-107); GLUCOSE 165 MG/DL (70-104); MAGNESIUM 2.5 MG/DL (1.5-2.4); PHOSPHORUS 3.9 MG/DL (2.3-4.5); POTASSIUM 4.2 MMOL/L (3.5-5.1); SODIUM 143 MMOL/L (135-145); TOTAL CARBON DIOXIDE 26.6 MMOL/L (24-32); TOTAL PROTEIN 5.9 G/DL (6.4-8.2); eGFR > 90 ML/MIN
[2019-07-20 03:49] LABS: PARTIAL THROMBOPLASTIN TIME 29 SECONDS (22-32)
[2019-07-20] MEDS: potassium Cl 20mEq/100mL bag 100 ML IV PRN ×2 (04:42→05:51)
--- NOTE | 2019-07-20 06:35 | NUR ---
Patient in room ICU 2044. I have received report from Janice Fall RN and had the opportunity to ask questions and assume patient care. Patient currently on 30 mcg of nitro gtt and insulin at 2.4. Patient on 4L NC, with sinus tach HR at 110s.
--- NOTE | 2019-07-20 06:38 | NUR ---
Problems reprioritized. Patient report given, questions answered & plan of care reviewed with Dhiraj REDD.
[2019-07-20] MEDS: mupirocin 2% nasal ointment 1gm UD NS SCH ×2 (07:12→20:20)
[2019-07-20] MEDS: docusate sod 100mg capsule PO SCH ×2 (07:12→20:19)
[2019-07-20] MEDS: gabapentin 300mg capsule PO SCH ×3 (07:12→20:20)
[2019-07-20] MEDS: atorvastatin 10mg tablet PO SCH (07:13)
[2019-07-20] MEDS: aspirin 325mg tablet, delayed-release (Ecotrin) PO SCH (07:13)
[2019-07-20] MEDS: vancomycin/NS 1 GM ADD-VANTAGE 250 ML IV SCH ×2 (07:18→20:21)
[2019-07-20] MEDS ORDERED: metoprolol tartrate 12.5mg (1/2 tablet) PO SCH ×2 (08:00→20:00)
[2019-07-20] MEDS: insulin Lispro (HumaLOG) vial - multi-dose SQ SCH ×2 (08:36→13:08)
[2019-07-20] MEDS: metoprolol tartrate 12.5mg (1/2 tablet) PO SCH ×2 (08:48→20:21)
[2019-07-20] MEDS ORDERED: insulin glargine (Lantus) pen - multi-dose SQ ONE (09:00)
--- NOTE | 2019-07-20 11:46 | NUR ---
reassessment: Pt s/p CABG PO 0-25% fluctuates up to 100% post-op refusing. LBM 07/16 receiving colace. TG 566 on lipitor. Will need heart healthy/DM/CABG eds once stable post-op. Will continue to monitor for ONS and additional bowel care needs needs post-op. Rec: 1. advance diet to carb controlled/heart healthy per MD 2. monitor for ONS needs once PO 3. DM/HH/CABG eds once more stable prior to d/c 4. routine bowel care 5. wt per rx Addendum: 07/20/19 at [address] Amended: Links added.
[2019-07-20] MEDS: insulin regular, human 100 UNIT in normal saline 100ml IV soln 100 ML IV SCH ×2 (14:33)
--- NOTE | 2019-07-20 18:24 | NUR ---
Problems reprioritized. Patient report given, questions answered & plan of care reviewed with Ruthie Mejia RN.
[2019-07-21] VITALS (19 sets, daily range): BP systolic 105–159; BP diastolic 70–115
[2019-07-21] MEDS: HYDROcodone/acetaminophen 10/325mg tab PO PRN ×5 (00:34→20:52)
[2019-07-21 03:11] LABS: BASOPHILS % (AUTO) 0.2 % (0-1); EOSINOPHILS # (AUTO) 0.1 X10'3 (0-0.9); EOSINOPHILS % (AUTO) 0.5 % (0-6); HEMOGLOBIN 9.6 g/dl (14.0-17.9); LYMPHOCYTES # (AUTO) 2.2 X10'3 (1.1-4.8); MEAN CORPUSCULAR HEMOGLOBIN 29.7 PG (27.0-31.0); MEAN CORPUSCULAR HGB CONC 34.1 g/dL (33.0-36.5); MEAN CORPUSCULAR VOLUME 87.1 FL (78-98); MEAN PLATELET VOLUME 10.3 FL (7.4-10.4); MONOCYTES # (AUTO) 1.1 X10'3 (0-0.9); NEUTROPHILS % (AUTO) 76.3 % (42-75); PLATELET COUNT 202 X10'3 (140-440); RED BLOOD COUNT 3.22 X10'6 (4.70-6.10); RED CELL DISTRIBUTION WIDTH 13.2 % (11.5-14.5); WHITE BLOOD COUNT 14.4 X10'3 (4.5-11.0)
[2019-07-21 03:28] LABS: ALBUMIN 2.9 G/DL (3.4-5.0); ANION GAP 6 (8-16); BLOOD UREA NITROGEN 19 MG/DL (7-18); BUN/CREATININE RATIO 26.8 (5.4-32.0); CALCIUM 7.9 MG/DL (8.5-10.1); CHLORIDE 106 MMOL/L (99-107); CREATININE 0.71 MG/DL (0.60-1.10); GLUCOSE 198 MG/DL (70-104); PHOSPHORUS 2.5 MG/DL (2.3-4.5); POTASSIUM 4.2 MMOL/L (3.5-5.1); SODIUM 139 MMOL/L (135-145); TOTAL CARBON DIOXIDE 27.2 MMOL/L (24-32); eGFR > 90 ML/MIN
--- NOTE | 2019-07-21 06:30 | NUR ---
Patient in room ICU 2044. I have received report from Ruthie Adams, and had the opportunity to ask questions and assume patient care.
[2019-07-21] MEDS ORDERED: lisinopril 10 MG tablet PO ONE (07:00)
[2019-07-21] MEDS: aspirin 325mg tablet, delayed-release (Ecotrin) PO SCH (07:15)
[2019-07-21] MEDS: pantoprazole 40mg Tablet.DR PO SCH (07:16)
[2019-07-21] MEDS: atorvastatin 10mg tablet PO SCH (07:16)
[2019-07-21] MEDS: metoprolol tartrate 12.5mg (1/2 tablet) PO SCH ×3 (07:16→19:42)
[2019-07-21] MEDS: docusate sod 100mg capsule PO SCH ×2 (07:16→19:36)
[2019-07-21] MEDS: gabapentin 300mg capsule PO SCH (07:16)
[2019-07-21] MEDS: mupirocin 2% nasal ointment 1gm UD NS SCH (07:17)
[2019-07-21] MEDS: insulin Lispro (HumaLOG) vial - multi-dose SQ SCH ×3 (08:51→19:45)
[2019-07-21] MEDS ORDERED: insulin glargine (Lantus) pen - multi-dose SQ SCH (09:00)
--- NOTE | 2019-07-21 09:30 | NUR ---
ART line discontinued from R wrist, pressure dressing in place. Becker catheter discontinued at 0830. Chest tubes removed by DUSTY Kimbrough at 0745.
[2019-07-21] MEDS ORDERED: magnesium 4gm in 100ml NS 100 ML IV PRN (15:20)
[2019-07-21] MEDS ORDERED: magnesium Cl slow-release 64mg tablet PO PRN (15:20)
[2019-07-21] MEDS ORDERED: magnesium 2GM in 50ml NS 50 ML IV PRN (15:20)
[2019-07-21] MEDS ORDERED: potassium CL 10mEq/100ml bag 100 ML IV PRN ×2 (15:20)
[2019-07-21] MEDS ORDERED: potassium Cl 20 mEq SR tablet PO PRN ×2 (15:20)
--- NOTE | 2019-07-21 16:30 | NUR ---
Patient transported with belongings to ACCE unit, room 308. Report given to TRAMAINE Katz ACCE unit. VSS on 2L NC.
--- NOTE | 2019-07-21 18:00 | NUR ---
Patient in room MED 308. I have received report from TRAMAINE Choudhary and had the opportunity to ask questions and assume patient care.
--- NOTE | 2019-07-21 18:23 | NUR ---
Problems reprioritized. Patient report given, questions answered & plan of care reviewed with Yvonne REDD.
[2019-07-21] MEDS: potassium Cl 20 mEq SR tablet PO SCH (19:49)
[2019-07-21] MEDS: magnesium Cl slow-release 64mg tablet PO SCH (19:50)
[2019-07-21] MEDS ORDERED: lisinopril 5mg tablet PO ONE (22:45)
[2019-07-22 02:00] VITALS: BP 148/92
[2019-07-22] MEDS: HYDROcodone/acetaminophen 10/325mg tab PO PRN ×3 (02:15→19:24)
[2019-07-22 04:47] LABS: BASOPHILS % (AUTO) 0.4 % (0-1); EOSINOPHILS # (AUTO) 0.3 X10'3 (0-0.9); EOSINOPHILS % (AUTO) 2.5 % (0-6); HEMATOCRIT 31.1 % (42.0-52.0); HEMOGLOBIN 10.5 g/dl (14.0-17.9); LYMPHOCYTES # (AUTO) 1.9 X10'3 (1.1-4.8); MEAN CORPUSCULAR HEMOGLOBIN 29.3 PG (27.0-31.0); MEAN CORPUSCULAR HGB CONC 33.9 g/dL (33.0-36.5); MEAN CORPUSCULAR VOLUME 86.7 FL (78-98); MEAN PLATELET VOLUME 9.7 FL (7.4-10.4); MONOCYTES # (AUTO) 0.7 X10'3 (0-0.9); MONOCYTES % (AUTO) 6.5 % (2-12); NEUTROPHILS # (AUTO) 8.2 X10'3 (1.8-7.7); NEUTROPHILS % (AUTO) 73.6 % (42-75); PLATELET COUNT 207 X10'3 (140-440); RED BLOOD COUNT 3.59 X10'6 (4.70-6.10); WHITE BLOOD COUNT 11.1 X10'3 (4.5-11.0)
[2019-07-22 04:59] LABS: ALBUMIN 2.8 G/DL (3.4-5.0); ANION GAP 6 (8-16); BLOOD UREA NITROGEN 14 MG/DL (7-18); BUN/CREATININE RATIO 20.3 (5.4-32.0); CALCIUM 8.5 MG/DL (8.5-10.1); CHLORIDE 105 MMOL/L (99-107); CREATININE 0.69 MG/DL (0.60-1.10); GLUCOSE 117 MG/DL (70-104); MAGNESIUM 1.9 MG/DL (1.5-2.4); POTASSIUM 4.2 MMOL/L (3.5-5.1); SODIUM 140 MMOL/L (135-145); eGFR > 90 ML/MIN
[2019-07-22 06:00] VITALS: BP 151/103
--- NOTE | 2019-07-22 06:00 | NUR ---
Problems reprioritized. Patient report given, questions answered & plan of care reviewed with Art, RN.
[2019-07-22] MEDS: magnesium Cl slow-release 64mg tablet PO SCH ×2 (07:32→20:23)
[2019-07-22] MEDS: docusate sod 100mg capsule PO SCH ×2 (07:32→20:39)
[2019-07-22] MEDS: pantoprazole 40mg Tablet.DR PO SCH (07:32)
[2019-07-22] MEDS: metoprolol tartrate 12.5mg (1/2 tablet) PO SCH ×2 (07:32→20:32)
[2019-07-22] MEDS: atorvastatin 10mg tablet PO SCH (07:32)
[2019-07-22] MEDS: potassium Cl 20 mEq SR tablet PO SCH ×2 (07:33→20:22)
[2019-07-22] MEDS: aspirin 325mg tablet, delayed-release (Ecotrin) PO SCH (07:33)
[2019-07-22] MEDS: K and/or MAG REPLACEMENT MC SCH (08:00)
[2019-07-22] MEDS ORDERED: metoprolol tartrate 50mg tablet PO ONE (08:20)
[2019-07-22] MEDS ORDERED: furosemide 40mg/4ml inj IV ONE (08:25)
[2019-07-22] MEDS ORDERED: insulin glargine (Lantus) pen - multi-dose SQ SCH (09:02)
[2019-07-22] MEDS: insulin Lispro (HumaLOG) vial - multi-dose SQ SCH ×3 (09:31→20:10)
[2019-07-22 11:00] VITALS: BP 120/75
[2019-07-22 15:00] VITALS: BP 131/90
[2019-07-22 18:00] VITALS: BP 155/89
--- NOTE | 2019-07-22 18:00 | NUR ---
Patient in room MED 308. I have received report from Art rn and had the opportunity to ask questions and assume patient care.
--- NOTE | 2019-07-22 18:00 | NUR ---
Patient in room MED 308. I have received report from Art, RN, and had the opportunity to ask questions and assume patient care.
[2019-07-22] MEDS: lisinopril 5mg tablet PO SCH (20:00)
[2019-07-22] MEDS ORDERED: lisinopril 5mg tablet PO SCH (21:00)
[2019-07-22 22:00] VITALS: BP 148/87
[2019-07-23 02:00] VITALS: BP 139/98
[2019-07-23 05:22] LABS: BASOPHILS % (AUTO) 0.3 % (0-1); EOSINOPHILS # (AUTO) 0.4 X10'3 (0-0.9); EOSINOPHILS % (AUTO) 3.6 % (0-6); HEMATOCRIT 32.2 % (42.0-52.0); LYMPHOCYTES # (AUTO) 2.4 X10'3 (1.1-4.8); LYMPHOCYTES % (AUTO) 20.1 % (21-51); MEAN CORPUSCULAR HEMOGLOBIN 29.7 PG (27.0-31.0); MEAN CORPUSCULAR HGB CONC 34.1 g/dL (33.0-36.5); MEAN PLATELET VOLUME 9.9 FL (7.4-10.4); MONOCYTES # (AUTO) 0.8 X10'3 (0-0.9); NEUTROPHILS # (AUTO) 8.3 X10'3 (1.8-7.7); PLATELET COUNT 283 X10'3 (140-440); RED CELL DISTRIBUTION WIDTH 12.7 % (11.5-14.5)
[2019-07-23 06:00] VITALS: BP 153/96
--- NOTE | 2019-07-23 06:00 | NUR ---
Reviewed and agreed with Omer Toledo RN's charting
[2019-07-23 06:02] LABS: ALBUMIN 2.7 G/DL (3.4-5.0); ANION GAP 6 (8-16); BLOOD UREA NITROGEN 16 MG/DL (7-18); BUN/CREATININE RATIO 21.1 (5.4-32.0); CALCIUM 9.1 MG/DL (8.5-10.1); CHLORIDE 103 MMOL/L (99-107); CREATININE 0.76 MG/DL (0.60-1.10); GLUCOSE 96 MG/DL (70-104); MAGNESIUM 1.9 MG/DL (1.5-2.4); POTASSIUM 4.2 MMOL/L (3.5-5.1); SODIUM 139 MMOL/L (135-145); TOTAL CARBON DIOXIDE 30.1 MMOL/L (24-32); eGFR > 90 ML/MIN
--- NOTE | 2019-07-23 06:36 | NUR ---
Patient in room MED 308. I have received report from Rony and had the opportunity to ask questions and assume patient care.
[2019-07-23] MEDS ORDERED: COL100C PO (07:17)
[2019-07-23] MEDS ORDERED: METO25TA6 PO (07:17)
[2019-07-23] MEDS ORDERED: ASPI-41 PO (07:17)
[2019-07-23] MEDS ORDERED: HYDR-3972 PO (07:17)
[2019-07-23] MEDS ORDERED: LISI10TA4 PO (07:17)
[2019-07-23] MEDS ORDERED: ATOR10TA PO (07:17)
[2019-07-23] MEDS: pantoprazole 40mg Tablet.DR PO SCH (07:30)
[2019-07-23] MEDS ORDERED: aspirin 325mg tablet, delayed-release (Ecotrin) PO SCH (08:00)
[2019-07-23] MEDS: K and/or MAG REPLACEMENT MC SCH (08:00)
[2019-07-23] MEDS: magnesium Cl slow-release 64mg tablet PO SCH (08:46)
[2019-07-23] MEDS: docusate sod 100mg capsule PO SCH (08:46)
[2019-07-23] MEDS: lisinopril 5mg tablet PO SCH (08:47)
[2019-07-23] MEDS: potassium Cl 20 mEq SR tablet PO SCH (08:47)
[2019-07-23] MEDS: atorvastatin 10mg tablet PO SCH (08:47)
[2019-07-23 08:48] VITALS: BP_SYST 153
[2019-07-23] MEDS: metoprolol tartrate 12.5mg (1/2 tablet) PO SCH (08:48)
[2019-07-23] MEDS: insulin Lispro (HumaLOG) vial - multi-dose SQ SCH ×2 (09:33→13:24)
--- NOTE | 2019-07-23 09:40 | NUR ---
DC instructions initiated, however, their was no coverage for Diabetes. Attempted call to [facility], but they are in surgery.
--- NOTE | 2019-07-23 10:24 | NUR ---
SPOKE WITH DR. JAEGER ABOUT DIABETES ORDERS AT DISCHARGE PAGED DR. BOYLE PER HIS REQUEST "RE: DR. JAEGER'S PATIENT IN ROOM 308- DR. JAEGER IS REQUESTING YOUR RECOMMENDATION ON DISCHARGE DIABETES ORDERS. THANK YOU, YASEMIN GAMINO [phone]"
--- NOTE | 2019-07-23 12:54 | NUR ---
Unable to provide glucometer for pt. Apparently, we no longer are able to provide glucometers for discharging pt's. Pt will be encouraged to get one DANIELLE. Pt will be directed to development educator for assistance.
--- NOTE | 2019-07-23 14:01 | NUR ---
Pt given DC instructions, paper rx. PT IV removed, tip intact. Pt assisted to POV in . All known property with pt. Pt given detailed instructions on how to access diabetes education.
--- NOTE | 2019-07-23 14:43 | NUR ---
[place] documentation: I have reviewed and agree with all interventions, assessments performed and documented by TRAMAINE Hall .
--- NOTE | 2019-07-23 15:10 | NUR ---
Pt discharged prior to RD being available to provide education, will send via mail using address provided in EMR. Addendum: 07/23/19 at [address] Amended: Links added.
[2019-07-23] MEDS ORDERED: lisinopril 10 MG tablet PO SCH (21:00)
[2019-07-24] MEDS ORDERED: aspirin 81mg tab.chew PO SCH (08:30)
== END 2019-07-23 13:45 | disposition home or self-care (01) | DRG 165 ==
LOC: ER 20:38 → MED 3N 07-17 00:39 → ICU 2S 07-17 13:23 → MED 3N 07-21 16:30
PROVIDERS: ADMIT Internal Medicine; ATTEND Thoracic Surgery (Cardiothoracic Vascular Surgery)
PROC: 5A09357 Assistance with Respiratory Ventilation, Less than 24 Consecutive Hours, Continuous Positive Airway Pressure (ICD-10-PCS; 2019-07-17)
PROC: 4A023N7 Measurement of Cardiac Sampling and Pressure, Left Heart, Percutaneous Approach (ICD-10-PCS; 2019-07-17)
PROC: B2111ZZ Fluoroscopy of Multiple Coronary Arteries using Low Osmolar Contrast (ICD-10-PCS; 2019-07-17)
PROC: B2151ZZ Fluoroscopy of Left Heart using Low Osmolar Contrast (ICD-10-PCS; 2019-07-17)
PROC: B3111ZZ Fluoroscopy of Right Brachiocephalic-Subclavian Artery using Low Osmolar Contrast (ICD-10-PCS; 2019-07-17)
PROC: B41F1ZZ Fluoroscopy of Right Lower Extremity Arteries using Low Osmolar Contrast (ICD-10-PCS; 2019-07-17)
PROC: B41C1ZZ Fluoroscopy of Pelvic Arteries using Low Osmolar Contrast (ICD-10-PCS; 2019-07-17)
PROC: B31N1ZZ Fluoroscopy of Other Upper Arteries using Low Osmolar Contrast (ICD-10-PCS; 2019-07-17)
PROC: 5A09357 Assistance with Respiratory Ventilation, Less than 24 Consecutive Hours, Continuous Positive Airway Pressure (ICD-10-PCS; 2019-07-18)
PROC: 021209W Bypass Coronary Artery, Three Arteries from Aorta with Autologous Venous Tissue, Open Approach (ICD-10-PCS; 2019-07-19)
PROC: 5A1221Z Performance of Cardiac Output, Continuous (ICD-10-PCS; 2019-07-19)
PROC: B24BZZ4 Ultrasonography of Heart with Aorta, Transesophageal (ICD-10-PCS; 2019-07-19)
PROC: 06BP4ZZ Excision of Right Saphenous Vein, Percutaneous Endoscopic Approach (ICD-10-PCS; 2019-07-19)
PROC: 5A09357 Assistance with Respiratory Ventilation, Less than 24 Consecutive Hours, Continuous Positive Airway Pressure (ICD-10-PCS; 2019-07-19)
PROC: 02HV33Z Insertion of Infusion Device into Superior Vena Cava, Percutaneous Approach (ICD-10-PCS; 2019-07-19)
PROC: 4A133B3 Monitoring of Arterial Pressure, Pulmonary, Percutaneous Approach (ICD-10-PCS; 2019-07-19)
PROC: 02HP32Z Insertion of Monitoring Device into Pulmonary Trunk, Percutaneous Approach (ICD-10-PCS; 2019-07-19)
PROC: 02100Z9 Bypass Coronary Artery, One Artery from Left Internal Mammary, Open Approach (ICD-10-PCS; principal; 2019-07-19 06:12)
PROC: 5A09357 Assistance with Respiratory Ventilation, Less than 24 Consecutive Hours, Continuous Positive Airway Pressure (ICD-10-PCS; 2019-07-20)
DX: I21.4 Non-ST elevation (NSTEMI) myocardial infarction (principal); I31.3 Pericardial effusion (noninflammatory); E11.65 Type 2 diabetes mellitus with hyperglycemia; I25.10 Atherosclerotic heart disease of native coronary artery without angina pectoris; E66.9 Obesity, unspecified; E78.5 Hyperlipidemia, unspecified; I10 Essential (primary) hypertension; I34.0 Nonrheumatic mitral (valve) insufficiency; J45.909 Unspecified asthma, uncomplicated; Z60.2 Problems related to living alone; F41.1 Generalized anxiety disorder; G47.30 Sleep apnea, unspecified; R00.0 Tachycardia, unspecified; Z88.0 Allergy status to penicillin; Z88.1 Allergy status to other antibiotic agents; Z88.2 Allergy status to sulfonamides; Z88.8 Allergy status to other drugs, medicaments and biological substances; Z68.34 Body mass index [BMI] 34.0-34.9, adult; Z79.84 Long term (current) use of oral hypoglycemic drugs; Z80.8 Family history of malignant neoplasm of other organs or systems; Z79.899 Other long term (current) drug therapy; Z79.82 Long term (current) use of aspirin
CPT/HCPCS: 0232T; 36415; 36600; 71045; 80048; 80053; 80061; 80305; 81001; 82330; 82435; 82803; 82947; 82948; 83036; 83735; 84100; 84132; 84295; 84484; 85018; 85025; 85347; 85384; 85610; 85730; 86885; 86900; 86901; 86920; 87081; 93005; 93306; 93312; 93325; 93458; 93880; 93970; 94002; 94010; 94660; 94667; 94668; 94760; 96374; 96375; 96376; 97110; 97161; 97530; 99152; 99153; 99291; A4618; A4620; A6258; A6402; A6446; A6449; A7000; A7048; C1713; C1751; C1769; C9113; G0378; J0360; J0690; J1644; J1815; J1940; J2001; J2060; J2150; J2250; J2270; J2370; J2405; J2440; J2704; J2795; J2930; J3010; J3246; J3370; J3475; J3480; J3490; J7030; J7040; J7050; J7060; J7120; P9045; P9047; Q0163; Q9967